=== PATIENT | male | born 1965 | race Caucasian/White ===

== ENCOUNTER 2023-06-14 08:32 | Day surgery (SDC) | payer OTHER, SELFPAY ==
[2023-05-25 08:25] VITALS: BMI 36.2
--- NOTE | 2023-06-09 13:03 | PM.HPGS ---
History of Present Illness History of Present Illness Consent: Risks, benefits, and alternatives have been discussed and questions answered. Patient agrees to proceed with procedure. Chief complaint: Neoplasm Screening Narrative: Herb Ross is a 57 year old male Referred for colon cancer screening. his last colonoscopy was 6 years ago at which time a small polyp was removed Review of Systems Review of Systems: All systems reviewed & are unremarkable except as noted in HPI and below PMFSH Past Medical History Medical History Allergies Chicken pox Depression HTN (hypertension) Hyperlipidemia GIGI (obstructive sleep apnea) Surgical History Surgical History H/O wrist surgery Left 05/2020 History of thumb surgery Family History Family History Sibling Patient's sister is in good health Sibling Hyperlipidemia Father Hypertension Lung cancer Mother Breast cancer Social History Social History Smoking status: Never smoker Alcohol intake: current Alcohol use details: 1-2 times per week Substance use: never Substance use type: does not use Lack of Transportation: No Lack of Food: Never True Current Housing: I Have Housing Concerned About Future Housing: No Difficulty Paying Gas/Electric Bills: No Difficulty Paying for Meds: No Currently Unemployed: No Education: Associate Degree Difficulty w/ Childcare or Family Care: No Living arrangements: with family Spiritual care concerns: No Meds Home Medications and Allergies Home Medications Medication Instructions Recorded Confirmed Type amlodipine 10 mg tablet See Rx Instructions .Route 04/08/23 06/14/23 Rx .COMPLEX #90 tabs losartan 100 mg tablet 100 mg PO DAILY #90 tabs 04/08/23 06/14/23 Rx Allergies Allergy/AdvReac Type Severity Reaction Status Date / Time No Known Allergies Allergy Verified 06/14/23 09:38 Exam Resp: Auscultation: clear to auscultation bilaterally Cardio: Rate: regular rate Rhythm: regular rhythm GI: GI Palp: Yes Soft to palpation and No Tenderness to palpation present (GI) Assessment and Plan Assessment and plan (1) Screening for colon cancer: Code(s): Z12.11 - Encounter for screening for malignant neoplasm of colon Status: Acute Assessment and Plan: Colonoscopy with possible biopsy or polypectomy or cautery or injection of substances.
[2023-06-14 09:42] VITALS: BP 149/98; PULSE 77; RESP 16; TEMP 37; O2SAT 97
[2023-06-14] MEDS: LACTATED RINGERS 1,000 ML 150 ML IV CONT (09:52)
--- NOTE | 2023-06-14 10:24 | P.PNAN_ITS ---
Anes - Initial Pre Proc Eval Procedure: Operation Date: 06/14/23 11:00 Proposed Procedures p Screening Colonoscopy - Ankur Frausto MD Date/Time: 06/14/23 10:24 Surgeon: Ankur Frausto MD Pre Op Diagnosis: Neoplasm Screening Patient Data Age: 57 Gender: M Height: 1.7 m Weight: 102 kg Last Vital Signs Temp 37.0 C 06/14/23 09:42 Pulse 77 06/14/23 09:42 Resp 16 06/14/23 09:42 BP 149/98 H 06/14/23 09:42 Pulse Ox 97 06/14/23 09:42 O2 Del Method Room Air 06/14/23 09:42 Allergies Allergy/AdvReac Type Severity Reaction Status Date / Time No Known Allergies Allergy Verified 06/14/23 09:38 Home Medications Medication Instructions Recorded Confirmed Type amlodipine 10 mg tablet See Rx Instructions .Route 04/08/23 06/14/23 Rx .COMPLEX #90 tabs losartan 100 mg tablet 100 mg PO DAILY #90 tabs 04/08/23 06/14/23 Rx Patient hx anesthesia problems: none Family hx anesthesia problems: none Results Review: All pre-operative results and documents have been reviewed as part of the pre- operative evaluation. [facility] Past Medical History Medical History Allergies Chicken pox Depression HTN (hypertension) Hyperlipidemia GIGI (obstructive sleep apnea) Surgical History Surgical History H/O wrist surgery Left 05/2020 History of thumb surgery Family History Family History Sibling Patient's sister is in good health Sibling Hyperlipidemia Father Hypertension Lung cancer Mother Breast cancer Social History Social History Smoking status: Never smoker Alcohol intake: current Alcohol use details: 1-2 times per week Substance use: never Substance use type: does not use Lack of Transportation: No Lack of Food: Never True Current Housing: I Have Housing Concerned About Future Housing: No Difficulty Paying Gas/Electric Bills: No Difficulty Paying for Meds: No Currently Unemployed: No Education: Associate Degree Difficulty w/ Childcare or Family Care: No Living arrangements: with family Spiritual care concerns: No Anes - Eval Final PreProcedure Day of Procedure 06/14/23 10:24 Patient weight: obese Heart: regular rate and rhythm Lungs: clear to auscultation Airway: Mallampati scale class II and special considerations (small opening) Neurological: alert and oriented Emergent: no Anesthetic plan: proceed Anesthesia type and monitoring: general GIVS and standard monitoring Results Review: All pre-operative results and documents have been reviewed as part of the pre- operative evaluation. Informed Consent: The patient's anesthetic plan and its attendant risks and benefits were discussed with the patient/family/POA. Questions were solicited and answers pr ovided to the satisfaction of the patient/family/POA.
[2023-06-14 11:14] VITALS: BP 115/82; PULSE 88; RESP 18; O2SAT 98
[2023-06-14 11:24] VITALS: BP 130/95; PULSE 83; RESP 18; O2SAT 96
[2023-06-14 11:34] VITALS: BP 146/94; PULSE 82; RESP 18; O2SAT 98
--- NOTE | 2023-06-14 12:24 | WPDANESPN ---
Anes - Prog Note Post-Op Date/Time: 06/14/23 12:24 Cardiovascular status: normal Respiratory status: normal Airway patency: baseline Mental status: baseline Post-Op hydration status: normal Vital Signs: Last Vital Signs Temp 37.0 C 06/14/23 09:42 Pulse 82 06/14/23 11:34 Resp 18 06/14/23 11:34 BP 146/94 H 06/14/23 11:34 Pulse Ox 98 06/14/23 11:34 O2 Del Method Room Air 06/14/23 11:34 Pain Score (VAS): 0 I/O: Intake & Output 06/13/23 06/14/23 06/14/23 23:59 07:59 15:59 Intake Total 300 Balance 300 Patient Feedback: Patient satisfied with anesthetic care.
== END 2023-06-14 11:43 | disposition home or self-care (01) ==
PROVIDERS: PCP Internal Medicine; Visit Provider Internal Medicine Gastroenterology
PROC: 0DJD8ZZ Inspection of Lower Intestinal Tract, Via Natural or Artificial Opening Endoscopic (ICD-10-PCS; CPT 45378; principal; 2023-06-14 11:00)
DX: Z12.11 Encounter for screening for malignant neoplasm of colon (principal); K57.30 Diverticulosis of large intestine without perforation or abscess without bleeding
CPT/HCPCS: 45378

== ENCOUNTER 2024-08-04 08:11 | Outpatient (CLI) | payer OTHER, SELFPAY ==
--- NOTE | ~2024-08-04 | US_ITS ---
EXAMINATION: US aorta DATE: 08/04/2024 08:28 INDICATION: Abdominal aortic aneurysm screening with risk factors of hypertension and hypercholestero lemia along with family history of ischemic heart disease TECHNIQUE: Grayscale, color Doppler, and pulsed Doppler images of the aorta and common iliac arteries were obtained. COMPARISON: None. FINDINGS: The proximal aorta measures 2.9 cm in AP diameter. The mid aorta measures 2.2 cm. The distal aorta me asures 1.9 cm. The right common iliac artery measures 1.4 cm. The left common iliac artery measures 1 .6 cm. IMPRESSION: 1. Normal caliber abdominal aorta. Reviewed, dictated and finalized at location B. [facility] [facility]
== END 2024-08-04 08:12 | disposition home or self-care (01) ==
PROVIDERS: PCP Internal Medicine; Visit Provider Clinical Nurse Specialist
DX: E78.2 Mixed hyperlipidemia (principal); I10 Essential (primary) hypertension; Z82.49 Family history of ischemic heart disease and other diseases of the circulatory system
CPT/HCPCS: 76775